=== PATIENT | female | born 1970 | race Caucasian/White ===

== ENCOUNTER 2017-05-22 11:44 | Inpatient (IN) | payer MEDICARE, MEDICAID ==
[~2017-05-22] VITALS: Ht 175.3 cm; Wt 112.6 kg
[~2017-05-22 11:44] MED LIST: CARI350T PO; CHLO1CAP PO; CLON0.1T PO; CLON1TAB23 PO; DOCU100T3 PO; DOXE150C PO; DRON10CA PO; DRON5CAP PO; ESOM20CA PO; FENT1PAT7 TD; FENTANYL PATCH; GABA600T PO; HEPA5000 SQ; HYDR1AMP IV; METH10TA PO; MIRT45TA6 PO; MORP30CP12 PO; NICO1PAT4 TD; OMEP10CA2 PO; ONDA4TAB13 SL; ONDA4VIA4 IV; ONDA8TAB9 PO; OXYC20TA2 PO; OXYC5CAP4 PO; PANT40TA5 PO; PANT40VI IV; POLY119P4; PROM12.55 PO; PROM25AM6 IM; PROM25TA10 PO; VENL75CA PO; ZOLP10TA PO
[2017-05-22] MEDS ORDERED: SODIUM CHLORIDE 0.9% 1,000 ML IV ONE (12:18)
[2017-05-22] MEDS ORDERED: HYDROmorphone 1 MG/ML, 1ML ONE ×2 (12:23→13:36)
[2017-05-22] MEDS ORDERED: ONDANSETRON 2MG/ML, 2ML ONE (12:23)
[2017-05-22] MEDS: HYDROmorphone 1 MG/ML, 1ML IVPush PRN ×2 (12:27→13:40)
[2017-05-22] MEDS ORDERED: ONDANSETRON 2MG/ML, 2ML IVPush ONE (12:30)
[2017-05-22] MEDS ORDERED: SODIUM CHLORIDE FLUSH 10ML SYR IVF ONE (12:30)
[2017-05-22 12:40] LABS: HEMATOCRIT 39.7 % (34.6-47.8); HEMOGLOBIN 12.5 g/dL (11.7-16.4); WHITE BLOOD COUNT 6.4 x10^3/uL (3.4-10)
[2017-05-22 12:53] LABS: ASPARTATE AMINO TRANSFERASE 17 U/L (15-37); BLOOD UREA NITROGEN 3 mg/dL (7-18)
[2017-05-22] MEDS ORDERED: PROMETHAZINE 25MG TABLET PO PRN (17:30)
[2017-05-22] MEDS: SODIUM CHLORIDE 0.9% 1,000 ML IV SCH (17:48)
[2017-05-22] MEDS: ONDANSETRON 2MG/ML, 2ML IVPush PRN (17:49)
[2017-05-22] MEDS: DRONABINOL 5 MG CAPSULE PO SCH ×2 (17:51→21:51)
[2017-05-22] MEDS: ENOXAPARIN 40 MG/0.4 ML SQ SCH (17:51)
[2017-05-22] MEDS ORDERED: BISACODYL 10 MG SUPP PR PRN (18:00)
[2017-05-22] MEDS ORDERED: POLYETHYLENE GLYCOL 17 GM PACKET PO PRN (18:00)
[2017-05-22] MEDS ORDERED: ACETAMINOPHEN 325 MG TABLET PO PRN (18:00)
[2017-05-22] MEDS ORDERED: DOCUSATE 100 MG CAPSULE PO PRN (18:00)
[2017-05-22] MEDS ORDERED: PROMETHAZINE 25 MG/ML, 1ML IM PRN (18:00)
[2017-05-22] MEDS ORDERED: OMNIPAQUE 350 MG/ML, 150 ML BOTTLE ONE (18:27)
[2017-05-22] MEDS: KETOROLAC 30 MG/1 ML IVPush PRN (18:37)
[2017-05-22 20:47] VITALS: BP 147/90
[2017-05-22] MEDS ORDERED: FENTANYL 50 MCG PATCH TD SCH (21:00)
[2017-05-22] MEDS: DOXEPIN 100 MG CAPSULE PO SCH (21:00)
[2017-05-22] MEDS ORDERED: FENTANYL REMOVE PATCH NOTE XX SCH (21:00)
[2017-05-22] MEDS: CARISOPRODOL 350 MG TABLET PO SCH (21:50)
[2017-05-22] MEDS: PANTOPROZOLE 40MG TABLET PO SCH (21:50)
[2017-05-22] MEDS: DOXEPIN 10 MG CAPSULE PO SCH (21:50)
[2017-05-22] MEDS: DOXEPIN 25 MG CAPSULE PO SCH (21:52)
[2017-05-22] MEDS: ZOLPIDEM 10MG TABLET PO SCH (21:52)
[2017-05-23] MEDS: SODIUM CHLORIDE 0.9% 1,000 ML IV SCH ×2 (02:58→12:52)
[2017-05-23] MEDS: KETOROLAC 30 MG/1 ML IVPush PRN ×3 (03:03→21:24)
[2017-05-23 03:08] VITALS: BP 117/79
[2017-05-23 05:39] LABS: ASPARTATE AMINO TRANSFERASE 14 U/L (15-37); BLOOD UREA NITROGEN 4 mg/dL (7-18)
[2017-05-23 05:44] LABS: HEMATOCRIT 34.4 % (34.6-47.8); HEMOGLOBIN 10.8 g/dL (11.7-16.4); WHITE BLOOD COUNT 5.7 x10^3/uL (3.4-10)
[2017-05-23] MEDS: DRONABINOL 5 MG CAPSULE PO SCH ×5 (06:13→21:21)
[2017-05-23] MEDS: CARISOPRODOL 350 MG TABLET PO SCH ×4 (06:13→21:21)
[2017-05-23] MEDS: ONDANSETRON 2MG/ML, 2ML IVPush PRN ×2 (06:13→21:24)
[2017-05-23] MEDS: OXYcodone ORAL.CONC 20 MG/ML PO PRN ×2 (06:32→16:54)
[2017-05-23] MEDS: PANTOPROZOLE 40MG TABLET PO SCH ×2 (08:00→16:27)
[2017-05-23 08:16] VITALS: BP 126/86
[2017-05-23] MEDS ORDERED: MIDAZOLAM 1 MG/ML, 2ML ONE (09:06)
[2017-05-23] MEDS ORDERED: ONABOTULINUMTOXINA 100 UNITS IM ONE (09:30)
[2017-05-23] MEDS ORDERED: KETOROLAC 30 MG/1 ML ONE (09:31)
[2017-05-23] MEDS ORDERED: DEXAMETHASONE 4 MG/ML, 1ML ONE (09:31)
[2017-05-23] MEDS ORDERED: ONDANSETRON 2MG/ML, 2ML ONE (09:31)
[2017-05-23] MEDS ORDERED: PROPOFOL 10 MG/ML, 20ML ONE (09:31)
[2017-05-23] MEDS ORDERED: HYDROcodone/APAP 7.5-325MG/15ML UDC PO PRN (10:00)
[2017-05-23] MEDS ORDERED: ONDANSETRON 2MG/ML, 2ML IVPush PRN (10:00)
[2017-05-23] MEDS ORDERED: METOCLOPRAMIDE 5 MG/ML, 2ML IV PRN (10:00)
[2017-05-23] MEDS ORDERED: MIDAZOLAM 1 MG/ML, 2ML IV PRN (10:00)
[2017-05-23] MEDS ORDERED: LABETALOL 5MG/ML, 20ML IV PRN (10:00)
[2017-05-23] MEDS ORDERED: FENTANYL PF 100 MCG/2ML IV PRN (10:00)
[2017-05-23] MEDS ORDERED: ALBUTEROL SULFATE 2.5 MG/3 ML NPPB PRN (10:00)
[2017-05-23] MEDS ORDERED: METOPROLOL 1 MG/ML, 5ML IV PRN (10:00)
[2017-05-23] MEDS ORDERED: OXYcodone 5 MG/5 ML ORAL.SOL UDC PO PRN (10:00)
[2017-05-23] MEDS ORDERED: EPHEDRINE 50 MG/ML, 1ML IVPush PRN (10:00)
[2017-05-23] MEDS ORDERED: MEPERIDINE/PF 25MG/0.5ML IVPush PRN (10:00)
[2017-05-23] MEDS ORDERED: PROMETHAZINE 25 MG/ML, 1ML IV PRN (10:00)
[2017-05-23] MEDS ORDERED: ACETAMINOPHEN 325 MG TABLET PO PRN (10:00)
[2017-05-23] MEDS ORDERED: hydrALAzine 20 MG/ML, 1ML IV PRN (10:00)
[2017-05-23] MEDS ORDERED: OXYcodone 5 MG/5 ML ORAL.SOL UDC ONE (10:18)
[2017-05-23] MEDS ORDERED: ACETAMINOPHEN 650 MG/20.3 ML UDC ONE (10:18)
[2017-05-23] MEDS ORDERED: HYDROmorphone 1 MG/ML, 1ML ONE (10:23)
[2017-05-23] MEDS: HYDROmorphone 1 MG/ML, 1ML IV PRN ×2 (10:28→10:35)
[2017-05-23] MEDS ORDERED: PROMETHAZINE 25 MG/ML, 1ML ONE (10:38)
[2017-05-23 13:05] LABS: PATH.CAST-FLAG NOT PRESENT; SPERM-FLAG NOT PRESENT; SRC-FLAG NOT PRESENT; XTAL-FLAG NOT PRESENT; YLC-FLAG NOT PRESENT
[2017-05-23] MEDS ORDERED: GADOBUTROL 10 MMOL/10 ML PFS ONE (13:24)
[2017-05-23 15:05] VITALS: BP 120/71
[2017-05-23] MEDS: ENOXAPARIN 40 MG/0.4 ML SQ SCH (18:05)
[2017-05-23 19:35] VITALS: BP 149/106
[2017-05-23] MEDS: DOXEPIN 10 MG CAPSULE PO SCH (21:21)
[2017-05-23] MEDS: ZOLPIDEM 10MG TABLET PO SCH (21:21)
[2017-05-23] MEDS: DOXEPIN 25 MG CAPSULE PO SCH (21:22)
[2017-05-23] MEDS: DOXEPIN 100 MG CAPSULE PO SCH (21:23)
[2017-05-24 00:54] VITALS: BP 99/71
[2017-05-24] MEDS: OXYcodone ORAL.CONC 20 MG/ML PO PRN ×4 (01:02→21:29)
[2017-05-24] MEDS: CARISOPRODOL 350 MG TABLET PO SCH ×2 (05:42→10:52)
[2017-05-24] MEDS: ONDANSETRON 2MG/ML, 2ML IVPush PRN ×2 (05:42→12:36)
[2017-05-24] MEDS: DRONABINOL 5 MG CAPSULE PO SCH ×5 (05:42→20:40)
[2017-05-24 08:39] VITALS: BP 124/70
[2017-05-24] MEDS: PANTOPROZOLE 40MG TABLET PO SCH ×2 (08:41→17:44)
[2017-05-24] MEDS: KETOROLAC 30 MG/1 ML IVPush PRN (12:36)
[2017-05-24 14:33] VITALS: BP 115/78
[2017-05-24] MEDS ORDERED: HYDROmorphone 1 MG/ML, 1ML IV ONE (17:30)
[2017-05-24] MEDS: ENOXAPARIN 40 MG/0.4 ML SQ SCH (17:44)
[2017-05-24 20:11] VITALS: BP 120/82
[2017-05-24] MEDS: ZOLPIDEM 10MG TABLET PO SCH (20:42)
[2017-05-24] MEDS: DOXEPIN 25 MG CAPSULE PO SCH (20:42)
[2017-05-24] MEDS: DOXEPIN 10 MG CAPSULE PO SCH (20:42)
[2017-05-24] MEDS: DOXEPIN 100 MG CAPSULE PO SCH (20:43)
[2017-05-24] MEDS: MUPIROCIN OINT 2%, 22GM TP SCH (20:44)
[2017-05-25 01:32] VITALS: BP 104/64
[2017-05-25] MEDS: OXYcodone ORAL.CONC 20 MG/ML PO PRN ×2 (03:30→09:17)
[2017-05-25] MEDS: DRONABINOL 5 MG CAPSULE PO SCH ×2 (05:28→09:17)
[2017-05-25] MEDS: ONDANSETRON 2MG/ML, 2ML IVPush PRN ×2 (05:29→09:16)
[2017-05-25] MEDS: MUPIROCIN OINT 2%, 22GM TP SCH (05:30)
[2017-05-25 07:30] VITALS: BP 101/70
[2017-05-25] MEDS: PANTOPROZOLE 40MG TABLET PO SCH (09:16)
== END 2017-05-25 15:16 | disposition home or self-care (01) | DRG 392 ==
LOC: ED 13:44 → EDIP 14:45 → 3NE 15:58
PROVIDERS: ADMIT Internal Medicine; ATTEND Internal Medicine
PROC: 0DB68ZX Excision of Stomach, Via Natural or Artificial Opening Endoscopic, Diagnostic (ICD-10-PCS; 2017-05-23)
PROC: 0D748ZZ Dilation of Esophagogastric Junction, Via Natural or Artificial Opening Endoscopic (ICD-10-PCS; 2017-05-23)
PROC: 0DB58ZX Excision of Esophagus, Via Natural or Artificial Opening Endoscopic, Diagnostic (ICD-10-PCS; principal; 2017-05-23 10:00)
DX: K22.0 Achalasia of cardia (principal); E44.0 Moderate protein-calorie malnutrition; E87.1 Hypo-osmolality and hyponatremia; F11.20 Opioid dependence, uncomplicated; E66.01 Morbid (severe) obesity due to excess calories; K50.90 Crohn's disease, unspecified, without complications; K22.8 Other specified diseases of esophagus; K22.2 Esophageal obstruction; Z88.8 Allergy status to other drugs, medicaments and biological substances; Z68.36 Body mass index [BMI] 36.0-36.9, adult; D50.9 Iron deficiency anemia, unspecified; F12.90 Cannabis use, unspecified, uncomplicated; F17.200 Nicotine dependence, unspecified, uncomplicated; F32.9 Major depressive disorder, single episode, unspecified; F41.9 Anxiety disorder, unspecified; G47.00 Insomnia, unspecified; G89.29 Other chronic pain; K21.9 Gastro-esophageal reflux disease without esophagitis; M79.7 Fibromyalgia; R13.19 Other dysphagia; Z86.718 Personal history of other venous thrombosis and embolism
CPT/HCPCS: 36415; 70553; 74220; 80053; 81001; 83690; 83735; 84100; 84443; 85025; 85610; 87086; 88305; 93975; 96361; 96374; 96375; 96376; A9585; J1100; J1170; J1650; J1885; J2250; J2405; J2550; J2704; Q0167; Q9967; C1725; J7030

== ENCOUNTER → 2017-06-14 | Outpatient (CLI) | payer MEDICARE, MEDICAID ==
[~2017-06-14] MED LIST changes: +FENTANYL PF 100 MCG/2ML ONE; +FLUMAZENIL 0.1 MG/1 ML, 5ML ONE; +MIDAZOLAM 1 MG/ML, 5ML ONE; +NALOXONE 1 MG/ML, 2ML ONE; +NICO1PAT13 TD; -NICO1PAT4 TD; +OXYC5CAP2 PO; -OXYC5CAP4 PO
== END | disposition home or self-care (01) ==
LOC: RAD 07:14
PROVIDERS: ATTEND Registered Nurse
DX: M50.323 Other cervical disc degeneration at C6-C7 level (principal); M50.223 Other cervical disc displacement at C6-C7 level; M48.02 Spinal stenosis, cervical region; M25.78 Osteophyte, vertebrae; M54.16 Radiculopathy, lumbar region; M40.50 Lordosis, unspecified, site unspecified; G93.5 Compression of brain
CPT/HCPCS: 72141; 72146; 99156; 99157; J2250; J3010; J2310

== ENCOUNTER → 2017-06-24 | Outpatient (CLI) | payer MEDICARE, MEDICAID | END | disposition home or self-care (01) | LOC: RAD 13:52 | PROVIDERS: ATTEND Registered Nurse | DX: M41.86 Other forms of scoliosis, lumbar region (principal); M43.16 Spondylolisthesis, lumbar region; M51.36 Other intervertebral disc degeneration, lumbar region; G89.29 Other chronic pain | CPT/HCPCS: 72050; 72110; J2250; J3010; J2310 ==

== ENCOUNTER → 2017-06-25 | Outpatient (CLI) | payer MEDICARE, MEDICAID ==
[~2017-06-25] MED LIST changes: -FENTANYL PF 100 MCG/2ML ONE; -FLUMAZENIL 0.1 MG/1 ML, 5ML ONE; -MIDAZOLAM 1 MG/ML, 5ML ONE; -NALOXONE 1 MG/ML, 2ML ONE
== END | disposition home or self-care (01) ==
LOC: RAD 13:02
PROVIDERS: ATTEND Registered Nurse
DX: M54.16 Radiculopathy, lumbar region (principal); M54.12 Radiculopathy, cervical region; M51.27 Other intervertebral disc displacement, lumbosacral region; G93.5 Compression of brain; M48.06 Spinal stenosis, lumbar region
CPT/HCPCS: 70551; 72148

== ENCOUNTER 2020-12-01 13:38 | Emergency (ER) | payer MEDICARE, MEDICAID ==
[~2020-12-01] VITALS: Ht 175.3 cm; Wt 115.0 kg
[~2020-12-01 13:38] MED LIST changes: -CLON0.1T PO; +CLON0.1T22 PO; -HEPA5000 SQ; +HEPA50002 SQ; +MIRT45TA57 PO; -MIRT45TA6 PO; +NICO-486 TD; -NICO1PAT13 TD; -ONDA4VIA4 IV; +ONDA4VIA60 IV; -PANT40TA5 PO; +PANT40TA6 PO; -PROM12.55 PO; +PROM12.57 PO
[2020-12-01 13:40] VITALS: BP 164/77
[2020-12-01] MEDS ORDERED: HYDROmorphone 2 MG/ML, 1ML IVPush PRN (14:00)
[2020-12-01] MEDS ORDERED: LIDOCAINE 2%,20 ML JEL.PF.APP MM ONE ×2 (14:30→14:31)
[2020-12-01] MEDS ORDERED: PROMETHAZINE 25 MG/ML, 1ML IM ONE (14:30)
[2020-12-01] MEDS ORDERED: HYDROmorphone 1 MG/ML, 1ML INJ ONE ×2 (14:31→14:34)
[2020-12-01] MEDS ORDERED: PROMETHAZINE 25 MG/ML, 1ML ONE (14:31)
--- NOTE | 2020-12-01 14:46 | NUR ---
PT RESTING IN BED AND ON MONITOR WITH PT VSS. PT MEDICATED PER DEC. BED SIDE TABLE SET UP FOR PROVIDER WITH REQUESTED SUPPLIES FOR FEEDING TUBE CHANGE.
[2020-12-01] MEDS ORDERED: HYDROmorphone 1 MG/ML, 1ML INJ IM ONE (15:00)
[2020-12-01] MEDS ORDERED: OMNIPAQUE 350 MG/ML, 50 ML BOTTLE ONE (15:29)
== END 2020-12-01 16:59 | disposition home or self-care (01) ==
LOC: ED 13:56
DX: K94.23 Gastrostomy malfunction (principal); F17.200 Nicotine dependence, unspecified, uncomplicated
CPT/HCPCS: 43762; 74018; 96372; 99284; J1170; J2550; Q9967

== ENCOUNTER 2020-12-13 13:54 | Emergency (ER) | payer MEDICARE, MEDICAID ==
[~2020-12-13] VITALS: Ht 175.3 cm; Wt 114.0 kg
--- NOTE | 2020-12-13 15:04 | NUR ---
[employer]: PT TO ROOM FROM LOBBY.
--- NOTE | 2020-12-13 15:15 | NUR ---
CC OF LUQ ABD PAIN FROM G TUBE THAT IS INFECTED. PT STATES SHE HAS BEEN ON ANTIBIOTICS FOR 2 WEEKS. HER GI DOC HAS CHANGED THE ANTIBIOTICS AND PT REPORTS NO CHANGE IN RELIEF AND WAS ADVISED TO COME HERE FOR IV ANTIOBIOTICS. PT STATES TODAY AT HOME SHE HAD SOME BLEEDING FROM G TUBE SITE AND IT BECAME DISLODGED AND FELL OUT ALONG WITH GREEN PUS AND BLOOD WHICH MADE PT NAUSEOUS. PT REPLACED G TUBE HERSELF AND THEN PRESENTED TO ER.
[2020-12-13 15:58] LABS: BASOPHILS % (AUTO) 0 % (0-1); EOSINOPHILS % (AUTO) 5 % (1-7); LYMPHOCYTES % (AUTO) 43 % (22-44); MEAN CORPUSCULAR HEMOGLOBIN 25.5 pg (27.0-34.8); MEAN CORPUSCULAR HGB CONC 33.3 g/dL (32.4-35.8); MEAN PLATELET VOLUME 7.5 fL (7.4-10.4); MONOCYTES % (AUTO) 8 % (2-9); NEUTROPHILS % (AUTO) 44 % (42-75); PLATELET COUNT 295 x10^3/uL (130-400); RED BLOOD COUNT 4.85 x10^6/uL (3.82-5.3); RED CELL DISTRIBUTION WIDTH 16.5 % (9.6-15.2)
[2020-12-13 15:59] LABS: MD NO
[2020-12-13] MEDS ORDERED: HYDROmorphone 1 MG/ML, 1ML INJ IV ONE ×3 (16:00→21:00)
[2020-12-13] MEDS ORDERED: ONDANSETRON 2MG/ML, 2ML IVPush ONE ×3 (16:00→21:00)
[2020-12-13] MEDS ORDERED: SODIUM CHLORIDE FLUSH 10ML SYR IVF ONE (16:00)
[2020-12-13 16:10] LABS: ALANINE AMINOTRANSFERASE 96 U/L (12-78); ALBUMIN 3.1 g/dL (3.4-5.0); ANION GAP 7 mmol/L (5-15); CALCIUM 8.5 mg/dL (8.5-10.1); CHLORIDE 106 mmol/L (98-107); CREATININE 0.71 mg/dL (0.55-1.02)
[2020-12-13 16:12] LABS: ALKALINE PHOSPHATASE 213 U/L (45-117); BILIRUBIN,TOTAL 0.5 mg/dL (0.2-1.0); TOTAL PROTEIN 6.9 g/dL (6.4-8.2)
[2020-12-13] MEDS ORDERED: ONDANSETRON 2MG/ML, 2ML ONE ×3 (16:35→20:40)
[2020-12-13] MEDS ORDERED: HYDROmorphone 1 MG/ML, 1ML INJ ONE ×3 (16:35→20:40)
--- NOTE | 2020-12-13 16:39 | NUR ---
pt to ct
[2020-12-13 16:45] LABS: MICROSCOPIC NOT IND
[2020-12-13] MEDS ORDERED: OMNIPAQUE 350 MG/ML, 100ML BOTTLE ONE (16:54)
--- NOTE | 2020-12-13 18:30 | NUR ---
PT ATTEMPTED TO REPLACE G-TUBE WITH NO SUCCESS. RN ATTEMPTED AND UNABLE TO FIND TRACK. PT REPORTING LOTS OF PAIN. AWARE
[2020-12-13] MEDS ORDERED: LIDOCAINE 1%, 10ML ONE (20:10)
[2020-12-13] MEDS ORDERED: VISIPAQUE 270 MG/ML, 50ML BOTTLE ONE (20:25)
[2020-12-13 20:52] VITALS: BP 101/68
== END 2020-12-13 20:54 | disposition home or self-care (01) ==
LOC: ED 15:40
DX: K94.22 Gastrostomy infection (principal); L03.311 Cellulitis of abdominal wall; R10.33 Periumbilical pain; R11.2 Nausea with vomiting, unspecified; R00.0 Tachycardia, unspecified
CPT/HCPCS: 36415; 49450; 74177; 75984; 80053; 81003; 83690; 85025; 87070; 87075; 87106; 87205; 93005; 96374; 96375; 96376; 99285; C1729; C1769; J1170; J2405; J3490; Q9966; Q9967

== ENCOUNTER 2020-12-18 11:40 | Emergency (ER) | payer MEDICAID, MEDICARE ==
[~2020-12-18] VITALS: Ht 172.7 cm; Wt 115.9 kg
[2020-12-18 11:50] VITALS: BP 191/109
[2020-12-18] MEDS ORDERED: LORazepam 2 MG/ML, 1ML ONE (12:12)
--- NOTE | 2020-12-18 12:20 | NUR ---
PT AMBULATORY TO ROOM FROM LOBBY. PT CHANGED INTO GOWN, MONITORS IN PLACE. CALL LIGHT WITHIN REACH. NO NEEDS AT THIS TIME.
[2020-12-18] MEDS ORDERED: LORazepam 2 MG/ML, 1ML IVPush ONE (12:30)
[2020-12-18] MEDS ORDERED: SODIUM CHLORIDE FLUSH 10ML SYR IVF ONE (12:30)
--- NOTE | 2020-12-18 13:04 | NUR ---
PT TO IR
[2020-12-18] MEDS ORDERED: HYDROmorphone 1 MG/ML, 1ML INJ ONE ×2 (13:21→14:23)
[2020-12-18] MEDS ORDERED: LIDOCAINE 1%, 10ML ONE (13:22)
--- NOTE | 2020-12-18 13:29 | NUR ---
IR CALLED TO HELP MEDICATE PATIENT. METER CALIBRATOR TO IR TO MEDICATE FOR PAIN AT 05/13
[2020-12-18] MEDS ORDERED: HYDROmorphone 1 MG/ML, 1ML INJ IV ONE ×2 (13:30→14:00)
[2020-12-18] MEDS ORDERED: FENTANYL PF 100 MCG/2ML ONE ×2 (13:39)
[2020-12-18] MEDS ORDERED: FLUMAZENIL 0.1 MG/1 ML, 5ML ONE (13:39)
[2020-12-18] MEDS ORDERED: NALOXONE 1 MG/ML, 2ML ONE (13:39)
[2020-12-18] MEDS ORDERED: MIDAZOLAM 1 MG/ML, 5ML ONE (13:39)
--- NOTE | 2020-12-18 14:11 | NUR ---
REPORT FROM IR. PT WAS SEDATED PER IR WITH VERSED & FENTANYL. PT G-TUBE REPLACED. ON HER WAY BACK TO ED.
--- NOTE | 2020-12-18 14:26 | NUR ---
PT CALMLY LAYING ON GURNEY. VSS. PT MEDICATED PER EMAR. CALL LIGHT WITHIN REACH. NO NEEDS AT THIS TIME.
--- NOTE | 2020-12-18 14:47 | NUR ---
Patient given discharge instructions and they have confirmed that they understand the instructions. Patient ambulatory with steady gait to discharge desk. waiting to pick her up.
== END 2020-12-18 14:49 | disposition home or self-care (01) ==
LOC: ED 14:00
DX: R10.9 Unspecified abdominal pain (principal); Z43.1 Encounter for attention to gastrostomy
CPT/HCPCS: 49450; 75984; 96374; 96375; 96376; 99156; 99157; 99285; C1725; C1729; C1769; J1170; J2060; J2250; J3010; J3490; J2310

== ENCOUNTER 2020-12-21 10:32 | Emergency (ER) | payer MEDICARE ==
[~2020-12-21] VITALS: Ht 175.3 cm; Wt 115.0 kg
--- NOTE | 2020-12-21 10:35 | NUR ---
triage: patient came and had her feeding tube replaced in IR. On Wednesday she put food/meds in it and she began throwing up. Still throwing up today, and abdominal pain. 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
--- NOTE | 2020-12-21 10:45 | NUR ---
PT STATES COMING INTO ER ON WEDNESDAY BECAUSE PTS FEEDING TUBE CAME OUT. PT REPORTS INTERVENTION RADIOLOGY REINSERTED FEEDING TUBE. SINCE REINSERTION PT STATES LOTS OF DIARRHEA AND VOMITING SINCE THEN. PT REPORTED TO BEING ON ANTIBIOTICS FOR THROAT AND FEEDING TUBE INFECTION. CO OF SPASMS AND XCRAMPING PAIN IN ABDOMEN AND SPASMS IN ESOPHAGUS. CO OF BACK PAIN WELL.
[2020-12-21] MEDS ORDERED: SODIUM CHLORIDE 0.9% 1,000ML IVBOLUS ONE (11:00)
[2020-12-21] MEDS ORDERED: HYDROmorphone 1 MG/ML, 1ML INJ IV ONE ×2 (11:00→14:30)
[2020-12-21] MEDS ORDERED: ONDANSETRON 2MG/ML, 2ML IVPush ONE (11:00)
[2020-12-21] MEDS ORDERED: HYDROmorphone 1 MG/ML, 1ML INJ ONE ×2 (11:38→14:26)
[2020-12-21] MEDS ORDERED: ONDANSETRON 2MG/ML, 2ML ONE (11:38)
[2020-12-21 11:42] LABS: BASOPHILS % (AUTO) 0 % (0-1); EOSINOPHILS % (AUTO) 4 % (1-7); LYMPHOCYTES % (AUTO) 35 % (22-44); MEAN CORPUSCULAR HEMOGLOBIN 25.3 pg (27.0-34.8); MEAN CORPUSCULAR HGB CONC 32.8 g/dL (32.4-35.8); MEAN PLATELET VOLUME 7.5 fL (7.4-10.4); MONOCYTES % (AUTO) 7 % (2-9); NEUTROPHILS % (AUTO) 54 % (42-75); PLATELET COUNT 324 x10^3/uL (130-400); RED BLOOD COUNT 5.42 x10^6/uL (3.82-5.3); RED CELL DISTRIBUTION WIDTH 16.1 % (9.6-15.2)
[2020-12-21 11:43] LABS: MD NO
--- NOTE | 2020-12-21 12:01 | NUR ---
DELAY IN CARE DUE TO DIFFICULT ACCESS
--- NOTE | 2020-12-21 12:15 | NUR ---
PT IS BACK FROM IMAGING.
--- NOTE | 2020-12-21 12:23 | NUR ---
PATIENT REQUESTING PAIN MEDICATIONS. MADE AWARE.
[2020-12-21 12:26] LABS: ALANINE AMINOTRANSFERASE 37 U/L (12-78); ALBUMIN 3.5 g/dL (3.4-5.0); ANION GAP 6 mmol/L (5-15); CALCIUM 9.2 mg/dL (8.5-10.1); CHLORIDE 106 mmol/L (98-107); CREATININE 0.86 mg/dL (0.55-1.02)
[2020-12-21 12:29] LABS: ALKALINE PHOSPHATASE 192 U/L (45-117); BILIRUBIN,TOTAL 0.2 mg/dL (0.2-1.0); TOTAL PROTEIN 8.2 g/dL (6.4-8.2)
--- NOTE | 2020-12-21 13:33 | NUR ---
report from Yemi. patient in pain. will let know
[2020-12-21 14:43] VITALS: BP 132/78
--- NOTE | 2020-12-21 15:04 | NUR ---
PATIENT UPSET AND TEARFUL NOT WANTING TO LEAVE. SHE STATES SHE WANTS TO STAY BECAUSE SHE FEELS SHE STILL HAS NAUSEA. NO VOMITING SEEN HERE AND NO WRECHING, VSS. PATIENT GOOD ON FEET, AMBULATORY AND NO ISSUES GETTING DRESSED. LISTENED. AIDET.
--- NOTE | 2020-12-21 15:05 | NUR ---
INSTRUCTED TO NOT DRIVE, SIG OTHER PICKING HER UP
== END 2020-12-21 15:05 | disposition home or self-care (01) ==
LOC: ED 11:01
DX: R10.84 Generalized abdominal pain (principal); R11.2 Nausea with vomiting, unspecified; F17.210 Nicotine dependence, cigarettes, uncomplicated; R00.0 Tachycardia, unspecified; K50.90 Crohn's disease, unspecified, without complications
CPT/HCPCS: 36415; 74021; 80053; 83690; 85025; 96361; 96374; 96375; 96376; 99285; J1170; J2405; J7030

== ENCOUNTER 2021-05-30 11:29 | Day surgery (SDC) | payer MEDICARE, MEDICAID ==
[~2021-05-30] VITALS: Ht 175.3 cm; Wt 123.3 kg
[2021-05-30] MEDS ORDERED: SECRETIN 16 MCG ONE ×2 (12:00→14:30)
[2021-05-30] MEDS ORDERED: CHLORHEXIDINE 15 ML UDC ONE (12:06)
[2021-05-30 12:25] VITALS: BP 131/91
[2021-05-30] MEDS ORDERED: atorvastatin PO (12:41)
[2021-05-30] MEDS ORDERED: [UNRECOGNIZED DRUG - OTHER] PO (12:41)
[2021-05-30] MEDS ORDERED: LORA2TAB99 PO (12:41)
[2021-05-30] MEDS ORDERED: metoprolol PO (12:41)
[2021-05-30] MEDS ORDERED: omeprazole PO (12:41)
[2021-05-30] MEDS ORDERED: ONDA4TAB7 PO (12:41)
[2021-05-30] MEDS ORDERED: PRAZ1CAP2 PO (12:42)
[2021-05-30 12:52] LABS: BASOPHILS % (AUTO) 0 % (0-1); EOSINOPHILS % (AUTO) 7 % (1-7); LYMPHOCYTES % (AUTO) 29 % (22-44); MEAN CORPUSCULAR HEMOGLOBIN 23.9 pg (27.0-34.8); MEAN CORPUSCULAR HGB CONC 33.3 g/dL (32.4-35.8); MEAN PLATELET VOLUME 7.7 fL (7.4-10.4); MONOCYTES % (AUTO) 6 % (2-9); NEUTROPHILS % (AUTO) 58 % (42-75); PLATELET COUNT 321 x10^3/uL (130-400); RED BLOOD COUNT 5.69 x10^6/uL (3.82-5.3); RED CELL DISTRIBUTION WIDTH 18.8 % (9.6-15.2)
[2021-05-30] MEDS ORDERED: FENTANYL PF 100 MCG/2ML ONE (12:58)
[2021-05-30] MEDS ORDERED: CHLORHEXIDINE 15 ML UDC PO ONE (13:00)
[2021-05-30] MEDS ORDERED: LACTATED RINGERS 1,000 ML IV SCH (13:00)
[2021-05-30] MEDS ORDERED: SODIUM CHLORIDE 0.9% 1,000 ML IV SCH (13:00)
[2021-05-30] MEDS ORDERED: MIDAZOLAM 1 MG/ML, 2ML ONE (13:01)
[2021-05-30] MEDS ORDERED: PROPOFOL 10 MG/ML, 20ML ONE (13:04)
[2021-05-30] MEDS ORDERED: ONDANSETRON 2MG/ML, 2ML ONE ×3 (13:04→16:19)
[2021-05-30] MEDS ORDERED: ROCURONIUM 10MG/ML,5ML ONE (13:04)
[2021-05-30] MEDS ORDERED: SUCCINYLCHOLINE 20 MG/ML, 10ML ONE (13:09)
[2021-05-30] MEDS ORDERED: HYDROmorphone 1 MG/ML, 1ML INJ IVPush PRN (16:00)
[2021-05-30] MEDS ORDERED: PROMETHAZINE 25 MG/ML, 1ML IVPush PRN (16:00)
[2021-05-30] MEDS ORDERED: DIAZEPAM 5 MG/ML, 2ML IVPush PRN (16:00)
[2021-05-30] MEDS ORDERED: LABETALOL 5MG/ML, 20ML IV PRN (16:00)
[2021-05-30] MEDS ORDERED: EPHEDRINE 50 MG/ML, 1ML IVPush PRN (16:00)
[2021-05-30] MEDS ORDERED: DIPHENHYDRAMINE 50 MG/ML, 1ML IVPush PRN (16:00)
[2021-05-30] MEDS ORDERED: OXYcodone 5 MG/5 ML ORAL.SOL UDC PO PRN (16:00)
[2021-05-30] MEDS ORDERED: EPHEDRINE 50 MG/ML, 1ML IM PRN (16:00)
[2021-05-30] MEDS ORDERED: HYDROmorphone 2 MG/ML, 1ML ONE (16:19)
[2021-05-30] MEDS: ONDANSETRON 2MG/ML, 2ML IVPush PRN ×2 (16:21→16:22)
[2021-06-04] MEDS ORDERED: CHLORHEXIDINE 15 ML UDC ONE (14:23)
[2021-06-04] MEDS ORDERED: OMNIPAQUE 350 MG/ML, 50 ML BOTTLE ONE (14:52)
[2021-06-04] MEDS ORDERED: PROPOFOL 50 ML ONE ×2 (14:53→15:37)
[2021-06-04] MEDS ORDERED: FENTANYL PF 100 MCG/2ML ONE (14:53)
[2021-06-04] MEDS ORDERED: ROCURONIUM 10MG/ML,5ML ONE (15:36)
[2021-06-04] MEDS ORDERED: ONDANSETRON 2MG/ML, 2ML ONE ×2 (15:36→15:41)
[2021-06-04] MEDS ORDERED: SUCCINYLCHOLINE 20 MG/ML, 10ML ONE (15:36)
== END 2021-05-30 17:35 | disposition home or self-care (01) ==
LOC: OUT 11:29 → EDSTATUS 12:45 → OUT 17:35
PROVIDERS: ATTEND Internal Medicine Gastroenterology
DX: K83.8 Other specified diseases of biliary tract (principal); R51.9 Headache, unspecified; K86.2 Cyst of pancreas; R16.1 Splenomegaly, not elsewhere classified; I10 Essential (primary) hypertension; E78.5 Hyperlipidemia, unspecified; G47.33 Obstructive sleep apnea (adult) (pediatric); J43.8 Other emphysema; K21.9 Gastro-esophageal reflux disease without esophagitis; M79.7 Fibromyalgia; M19.90 Unspecified osteoarthritis, unspecified site; Z88.1 Allergy status to other antibiotic agents; Z88.8 Allergy status to other drugs, medicaments and biological substances; Z91.048 Other nonmedicinal substance allergy status; Z20.822 Contact with and (suspected) exposure to COVID-19; Z88.5 Allergy status to narcotic agent; Z79.899 Other long term (current) drug therapy; Z90.710 Acquired absence of both cervix and uterus; Z98.890 Other specified postprocedural states
CPT/HCPCS: 36415; 70551; 74181; 85025; 87635; J0330; J1170; J2250; J2405; J2704; J2850; J3010; J7120

== ENCOUNTER 2021-06-01 14:49 | Inpatient (IN) | payer MEDICARE, MEDICAID ==
[~2021-06-01] VITALS: Ht 175.3 cm; Wt 128.1 kg
[~2021-06-01 14:49] MED LIST changes: +LORA2TAB99 PO; +ONDA4TAB7 PO; +PRAZ1CAP2 PO; +[UNRECOGNIZED DRUG - OTHER] PO; +atorvastatin PO; +metoprolol PO; +omeprazole PO
[2021-06-01 15:54] LABS: BASOPHILS % (AUTO) 1 % (0-1); EOSINOPHILS % (AUTO) 6 % (1-7); LYMPHOCYTES % (AUTO) 28 % (22-44); MEAN CORPUSCULAR HEMOGLOBIN 23.2 pg (27.0-34.8); MEAN CORPUSCULAR HGB CONC 32.3 g/dL (32.4-35.8); MEAN PLATELET VOLUME 7.5 fL (7.4-10.4); MONOCYTES % (AUTO) 6 % (2-9); NEUTROPHILS % (AUTO) 58 % (42-75); PLATELET COUNT 304 x10^3/uL (130-400); RED BLOOD COUNT 5.31 x10^6/uL (3.82-5.3); RED CELL DISTRIBUTION WIDTH 18.2 % (9.6-15.2)
[2021-06-01 16:13] LABS: ALANINE AMINOTRANSFERASE 355 U/L (12-78); ANION GAP 5 mmol/L (5-15); CALCIUM 9.2 mg/dL (8.5-10.1); CHLORIDE 103 mmol/L (98-107); CREATININE 0.83 mg/dL (0.55-1.02)
[2021-06-01 16:16] LABS: ALKALINE PHOSPHATASE 296 U/L (45-117); BILIRUBIN,TOTAL 0.2 mg/dL (0.2-1.0); TOTAL PROTEIN 7.7 g/dL (6.4-8.2)
--- NOTE | 2021-06-01 17:46 | NUR ---
PATIENT WALKED BACK FROM [facility] WITH CHIEF C/O CYST ON PANCREAS. PER PATIENT SHE HAD MRI DONE YESTERDAY AND WAS TOLD SHE HAS CYST ON HER PANCREAS THAT NEEDS TO BE REMOVED. PATIENT C/O 8/10 LEFT UPPER QUADRANT PAIN AND REPORTS N/V/D. A&O X4, CONNECTED TO MONITOR, VSS, CALL LIGHT WITHIN REACH.
--- NOTE | 2021-06-01 18:17 | NUR ---
ERMD AT BEDSIDE FOR EVALUATION.
[2021-06-01] MEDS ORDERED: ONDANSETRON 2MG/ML, 2ML ONE (18:26)
[2021-06-01] MEDS ORDERED: HYDROmorphone 2 MG/ML, 1ML ONE ×3 (18:26→22:13)
[2021-06-01] MEDS ORDERED: ONDANSETRON 2MG/ML, 2ML IVPush ONE (18:30)
[2021-06-01] MEDS ORDERED: HYDROmorphone 1 MG/ML, 1ML INJ IV ONE ×2 (18:30→20:00)
[2021-06-01] MEDS ORDERED: SODIUM CHLORIDE 0.9% 1,000 ML IV ONE (18:30)
[2021-06-01] MEDS ORDERED: SODIUM CHLORIDE FLUSH 10ML SYR IVF ONE (18:30)
--- NOTE | 2021-06-01 18:52 | NUR ---
REPORT TO JARED [employer]OPLES FOR TRANSFER OF PATIENT CARE.
[2021-06-01 18:54] LABS: MICROSCOPIC INDICATED
--- NOTE | 2021-06-01 19:09 | NUR ---
22G IV L Wrist established. Meds given, IVF running. Call santacruz and personal items within reach.
[2021-06-01] MEDS ORDERED: CEFTRIAXONE 1,000 MG in DEXTROSE 5% 50 ML IVPB ONE (20:30)
[2021-06-01] MEDS ORDERED: ONDANSETRON 4 MG TABLET PO PRN (21:00)
[2021-06-01] MEDS ORDERED: OMEPRAZOLE 20 MG CAPSULE.DR PO SCH (21:00)
[2021-06-01] MEDS ORDERED: BISACODYL 10 MG SUPP PR PRN (21:00)
[2021-06-01] MEDS ORDERED: POLYETHYLENE GLYCOL 17 GM PACKET PO PRN (21:00)
[2021-06-01] MEDS: [UNRECOGNIZED DRUG - OTHER] HOMEMEDPO SCH (21:00)
[2021-06-01] MEDS: SODIUM CHLORIDE FLUSH 10ML SYR IVF SCH (21:20)
--- NOTE | 2021-06-01 21:20 | NUR ---
Pt placed on 2L via NC for dropping O2 sats. Pt states she has a hx of sleep apnea and uses CPAP at home. States pain is 7/10 currently.
--- NOTE | 2021-06-01 22:10 | NUR ---
Report to JARED Cifuentes
[2021-06-01] MEDS ORDERED: PROMETHAZINE 25MG TABLET ONE (22:13)
[2021-06-01] MEDS: PROMETHAZINE 25MG TABLET PO PRN (22:18)
[2021-06-01] MEDS: HYDROmorphone 2 MG/ML, 1ML IVPush PRN (22:18)
--- NOTE | 2021-06-01 22:24 | NUR ---
Pt given PRN ordered 1.5mg Dilaudid IV and 25mg Phenergan PO for nausea and pain. Pt awaiting transport to room
--- NOTE | 2021-06-01 22:53 | NUR ---
Pt ambulated to bathroom w/ steady gait. Pt being transported to IP bed assignment at this time.
[2021-06-01 23:04] VITALS: BP 127/95
[2021-06-01] MEDS: PRAZOSIN 1 MG CAPSULE PO SCH (23:56)
[2021-06-01] MEDS: DOCUSATE 100 MG CAPSULE PO SCH (23:57)
[2021-06-01] MEDS: DRONABINOL 5 MG CAPSULE PO SCH (23:57)
[2021-06-01] MEDS: DOXEPIN 25 MG CAPSULE PO SCH (23:57)
[2021-06-02] MEDS: OMEPRAZOLE 20 MG CAPSULE.DR PO SCH ×3 (00:27→21:13)
[2021-06-02] MEDS: ZOLPIDEM 10MG TABLET PO PRN ×3 (01:30→22:15)
[2021-06-02] MEDS: HYDROmorphone 2 MG/ML, 1ML IVPush PRN ×5 (02:29→19:55)
[2021-06-02] MEDS: ONDANSETRON 2MG/ML, 2ML IVPush PRN ×4 (02:49→22:15)
[2021-06-02 02:55] VITALS: BP 124/91
[2021-06-02] MEDS: DRONABINOL 5 MG CAPSULE PO SCH ×5 (05:15→23:05)
[2021-06-02 06:49] LABS: BASOPHILS % (AUTO) 1 % (0-1); EOSINOPHILS % (AUTO) 9 % (1-7); LYMPHOCYTES % (AUTO) 33 % (22-44); MEAN CORPUSCULAR HEMOGLOBIN 22.9 pg (27.0-34.8); MEAN CORPUSCULAR HGB CONC 31.2 g/dL (32.4-35.8); MEAN PLATELET VOLUME 7.6 fL (7.4-10.4); MONOCYTES % (AUTO) 7 % (2-9); NEUTROPHILS % (AUTO) 49 % (42-75); PLATELET COUNT 212 x10^3/uL (130-400); RED BLOOD COUNT 4.72 x10^6/uL (3.82-5.3); RED CELL DISTRIBUTION WIDTH 18.9 % (9.6-15.2)
[2021-06-02 06:58] LABS: ALBUMIN 2.3 g/dL (3.4-5.0); ANION GAP 6 mmol/L (5-15); CALCIUM 8.4 mg/dL (8.5-10.1); CHLORIDE 106 mmol/L (98-107)
[2021-06-02 07:02] LABS: ALANINE AMINOTRANSFERASE 239 U/L (12-78); ALKALINE PHOSPHATASE 233 U/L (45-117); BILIRUBIN,TOTAL 0.4 mg/dL (0.2-1.0); CREATININE 0.58 mg/dL (0.55-1.02); TOTAL PROTEIN 6.3 g/dL (6.4-8.2)
[2021-06-02 08:42] VITALS: BP 100/70
[2021-06-02] MEDS: SODIUM CHLORIDE FLUSH 10ML SYR IVF SCH ×2 (09:00→21:14)
[2021-06-02] MEDS ORDERED: OMEPRAZOLE 20 MG CAPSULE.DR PO SCH (09:00)
[2021-06-02] MEDS: DOCUSATE 100 MG CAPSULE PO SCH ×2 (09:05→21:13)
[2021-06-02] MEDS: METOPROLOL SUCCINATE 25 MG TAB.ER.24H PO SCH (09:05)
[2021-06-02] MEDS: CEFTRIAXONE 1,000 MG in DEXTROSE 5% 50 ML IVPB SCH (09:06)
[2021-06-02] MEDS ORDERED: CARI350T PO (09:18)
[2021-06-02 14:32] VITALS: BP 103/73
[2021-06-02] MEDS: IRON SUCROSE COMPLEX 100MG/5ML IV SCH (15:17)
[2021-06-02] MEDS: CARISOPRODOL 350 MG TABLET PO SCH ×2 (17:00→23:05)
[2021-06-02 18:49] VITALS: BP 110/84
[2021-06-02] MEDS: [UNRECOGNIZED DRUG - OTHER] HOMEMEDPO SCH (19:27)
[2021-06-02] MEDS: PRAZOSIN 1 MG CAPSULE PO SCH (21:13)
[2021-06-02] MEDS: DOXEPIN 25 MG CAPSULE PO SCH (21:13)
[2021-06-03] MEDS: HYDROmorphone 2 MG/ML, 1ML IVPush PRN ×6 (00:07→23:01)
[2021-06-03 01:23] VITALS: BP 111/74
[2021-06-03] MEDS: PROMETHAZINE 25MG TABLET PO PRN (02:45)
[2021-06-03] MEDS: ONDANSETRON 2MG/ML, 2ML IVPush PRN ×2 (05:17→16:47)
[2021-06-03] MEDS: DRONABINOL 5 MG CAPSULE PO SCH ×5 (05:17→22:06)
[2021-06-03 06:30] LABS: BASOPHILS % (AUTO) 1 % (0-1); EOSINOPHILS % (AUTO) 8 % (1-7); LYMPHOCYTES % (AUTO) 24 % (22-44); MEAN CORPUSCULAR HEMOGLOBIN 23.1 pg (27.0-34.8); MEAN CORPUSCULAR HGB CONC 31.9 g/dL (32.4-35.8); MEAN PLATELET VOLUME 7.7 fL (7.4-10.4); MONOCYTES % (AUTO) 7 % (2-9); NEUTROPHILS % (AUTO) 60 % (42-75); PLATELET COUNT 230 x10^3/uL (130-400); RED BLOOD COUNT 4.59 x10^6/uL (3.82-5.3); RED CELL DISTRIBUTION WIDTH 18.2 % (9.6-15.2)
[2021-06-03 06:40] LABS: ALANINE AMINOTRANSFERASE 170 U/L (12-78); ALBUMIN 2.5 g/dL (3.4-5.0); ANION GAP 5 mmol/L (5-15); CALCIUM 8.3 mg/dL (8.5-10.1); CHLORIDE 104 mmol/L (98-107); CREATININE 0.58 mg/dL (0.55-1.02)
[2021-06-03 06:42] LABS: ALKALINE PHOSPHATASE 229 U/L (45-117); BILIRUBIN,TOTAL 0.2 mg/dL (0.2-1.0); TOTAL PROTEIN 6.2 g/dL (6.4-8.2)
[2021-06-03] MEDS ORDERED: LORazepam 1MG TABLET ONE (08:50)
[2021-06-03] MEDS: SODIUM CHLORIDE FLUSH 10ML SYR IVF SCH ×2 (09:00→22:06)
[2021-06-03] MEDS: METOPROLOL SUCCINATE 25 MG TAB.ER.24H PO SCH (09:06)
[2021-06-03] MEDS: OMEPRAZOLE 20 MG CAPSULE.DR PO SCH ×2 (09:07→20:17)
[2021-06-03] MEDS: IRON SUCROSE COMPLEX 100MG/5ML IV SCH (09:07)
[2021-06-03] MEDS: DOCUSATE 100 MG CAPSULE PO SCH ×2 (09:07→20:15)
[2021-06-03] MEDS: CARISOPRODOL 350 MG TABLET PO SCH ×3 (09:07→22:06)
[2021-06-03] MEDS: CEFTRIAXONE 1,000 MG in DEXTROSE 5% 50 ML IVPB SCH (09:08)
[2021-06-03 09:10] VITALS: BP 107/74
[2021-06-03 13:30] VITALS: BP 107/74
[2021-06-03 19:30] VITALS: BP 97/66
[2021-06-03] MEDS: DOXEPIN 25 MG CAPSULE PO SCH (20:17)
[2021-06-03] MEDS: [UNRECOGNIZED DRUG - OTHER] HOMEMEDPO SCH (21:00)
[2021-06-03] MEDS: PRAZOSIN 1 MG CAPSULE PO SCH (22:07)
[2021-06-04 00:56] VITALS: BP 100/69
[2021-06-04] MEDS: ONDANSETRON 2MG/ML, 2ML IVPush PRN ×3 (03:08→23:33)
[2021-06-04] MEDS: HYDROmorphone 2 MG/ML, 1ML IVPush PRN ×4 (03:09→20:16)
[2021-06-04] MEDS: DRONABINOL 5 MG CAPSULE PO SCH ×5 (06:15→21:53)
[2021-06-04 06:59] VITALS: BP 116/78
[2021-06-04 07:43] LABS: BASOPHILS % (AUTO) 1 % (0-1); EOSINOPHILS % (AUTO) 7 % (1-7); LYMPHOCYTES % (AUTO) 28 % (22-44); MEAN CORPUSCULAR HEMOGLOBIN 23.2 pg (27.0-34.8); MEAN CORPUSCULAR HGB CONC 31.9 g/dL (32.4-35.8); MEAN PLATELET VOLUME 7.7 fL (7.4-10.4); MONOCYTES % (AUTO) 8 % (2-9); NEUTROPHILS % (AUTO) 56 % (42-75); PLATELET COUNT 257 x10^3/uL (130-400); RED BLOOD COUNT 4.83 x10^6/uL (3.82-5.3); RED CELL DISTRIBUTION WIDTH 18.8 % (9.6-15.2)
[2021-06-04 07:55] LABS: CHLORIDE 101 mmol/L (98-107)
[2021-06-04 08:02] LABS: ALANINE AMINOTRANSFERASE 132 U/L (12-78); ALBUMIN 2.5 g/dL (3.4-5.0); ALKALINE PHOSPHATASE 209 U/L (45-117); ANION GAP 3 mmol/L (5-15); BILIRUBIN,TOTAL 0.2 mg/dL (0.2-1.0); CALCIUM 8.9 mg/dL (8.5-10.1); CREATININE 0.64 mg/dL (0.55-1.02); TOTAL PROTEIN 6.6 g/dL (6.4-8.2)
[2021-06-04] MEDS: SODIUM CHLORIDE FLUSH 10ML SYR IVF SCH ×2 (09:00→20:28)
[2021-06-04] MEDS: CEFTRIAXONE 1,000 MG in DEXTROSE 5% 50 ML IVPB SCH (09:54)
[2021-06-04] MEDS: IRON SUCROSE COMPLEX 100MG/5ML IV SCH (09:54)
[2021-06-04] MEDS: OMEPRAZOLE 20 MG CAPSULE.DR PO SCH ×2 (09:55→21:53)
[2021-06-04] MEDS: METOPROLOL SUCCINATE 25 MG TAB.ER.24H PO SCH (09:57)
[2021-06-04] MEDS: CARISOPRODOL 350 MG TABLET PO SCH ×3 (09:58→21:53)
[2021-06-04] MEDS: DOCUSATE 100 MG CAPSULE PO SCH ×2 (09:59→21:53)
[2021-06-04 12:29] VITALS: BP 104/70
[2021-06-04] MEDS ORDERED: SUCCINYLCHOLINE 20 MG/ML, 10ML ONE (14:52)
[2021-06-04] MEDS ORDERED: ROCURONIUM 10 MG/ML,10ML ONE (14:52)
[2021-06-04] MEDS ORDERED: PROPOFOL 10 MG/ML, 20ML ONE (14:52)
[2021-06-04] MEDS ORDERED: PROPOFOL 10 MG/ML, 50ML ONE (14:52)
[2021-06-04] MEDS ORDERED: PROMETHAZINE 25 MG/ML, 1ML IVPush PRN (15:30)
[2021-06-04] MEDS ORDERED: DIPHENHYDRAMINE 50 MG/ML, 1ML IVPush PRN (15:30)
[2021-06-04] MEDS ORDERED: EPHEDRINE 50 MG/ML, 1ML IVPush PRN (15:30)
[2021-06-04] MEDS ORDERED: ONDANSETRON 2MG/ML, 2ML IVPush PRN (15:30)
[2021-06-04] MEDS ORDERED: MEPERIDINE/PF 25MG/0.5ML IVPush PRN (15:30)
[2021-06-04] MEDS ORDERED: OXYcodone 5 MG/5 ML ORAL.SOL UDC PO PRN (15:30)
[2021-06-04] MEDS ORDERED: DIAZEPAM 5 MG/ML, 2ML IVPush PRN (15:30)
[2021-06-04] MEDS ORDERED: EPHEDRINE 50 MG/ML, 1ML IM PRN (15:30)
[2021-06-04] MEDS ORDERED: LABETALOL 5MG/ML, 20ML IV PRN (15:30)
[2021-06-04] MEDS ORDERED: HYDROmorphone 2 MG/ML, 1ML ONE (16:19)
[2021-06-04] MEDS: HYDROmorphone 1 MG/ML, 1ML INJ IVPush PRN ×2 (16:22→16:35)
[2021-06-04] MEDS ORDERED: OXYcodone 5 MG/5 ML ORAL.SOL UDC ONE (16:37)
[2021-06-04 20:19] VITALS: BP 125/84
[2021-06-04] MEDS: [UNRECOGNIZED DRUG - OTHER] HOMEMEDPO SCH (20:28)
[2021-06-04] MEDS: DOXEPIN 25 MG CAPSULE PO SCH (21:53)
[2021-06-04 21:54] VITALS: BP 118/85
[2021-06-04] MEDS: PRAZOSIN 1 MG CAPSULE PO SCH (21:54)
[2021-06-05 00:09] VITALS: BP 101/63
[2021-06-05] MEDS: HYDROmorphone 2 MG/ML, 1ML IVPush PRN ×4 (00:35→13:45)
[2021-06-05 06:26] LABS: EOSINOPHILS % (AUTO) 2 % (1-7); MEAN CORPUSCULAR HEMOGLOBIN 23.5 pg (27.0-34.8)
[2021-06-05 06:28] LABS: BASOPHILS % (AUTO) 1 % (0-1); LYMPHOCYTES % (AUTO) 25 % (22-44); MEAN CORPUSCULAR HGB CONC 31.9 g/dL (32.4-35.8); MONOCYTES % (AUTO) 6 % (2-9); NEUTROPHILS % (AUTO) 66 % (42-75); PLATELET COUNT 247 x10^3/uL (130-400); RED BLOOD COUNT 4.86 x10^6/uL (3.82-5.3); RED CELL DISTRIBUTION WIDTH 18.9 % (9.6-15.2)
[2021-06-05 06:30] LABS: CALCIUM 9.1 mg/dL (8.5-10.1); CHLORIDE 102 mmol/L (98-107)
[2021-06-05 06:37] LABS: ALANINE AMINOTRANSFERASE 100 U/L (12-78); ALBUMIN 2.6 g/dL (3.4-5.0); ALKALINE PHOSPHATASE 201 U/L (45-117); ANION GAP 6 mmol/L (5-15); BILIRUBIN,TOTAL 0.2 mg/dL (0.2-1.0); CREATININE 0.63 mg/dL (0.55-1.02); TOTAL PROTEIN 6.7 g/dL (6.4-8.2)
[2021-06-05] MEDS: DRONABINOL 5 MG CAPSULE PO SCH ×3 (06:51→13:44)
[2021-06-05 07:00] LABS: ANISOCYTOSIS 1+; OVALOCYTES 1+
[2021-06-05 07:01] VITALS: BP 148/75
[2021-06-05 07:01] LABS: <PLATELET ESTIMATE> ADEQUATE; <PLT MORPHOLOGY> NORMAL PLT MORPH
[2021-06-05] MEDS: DOCUSATE 100 MG CAPSULE PO SCH (09:07)
[2021-06-05] MEDS: OMEPRAZOLE 20 MG CAPSULE.DR PO SCH (09:07)
[2021-06-05] MEDS: CARISOPRODOL 350 MG TABLET PO SCH (09:08)
[2021-06-05] MEDS: SODIUM CHLORIDE FLUSH 10ML SYR IVF SCH (09:09)
[2021-06-05] MEDS: METOPROLOL SUCCINATE 25 MG TAB.ER.24H PO SCH (09:12)
[2021-06-05] MEDS ORDERED: OXYcodone IR 5MG TABLET PO ONE (11:00)
[2021-06-05] MEDS ORDERED: HYDROXYZINE PAMOATE 25MG CAP PO ONE (11:00)
[2021-06-05] MEDS: CEFTRIAXONE 1,000 MG in DEXTROSE 5% 50 ML IVPB SCH (12:37)
[2021-06-05 14:05] VITALS: BP 105/74
== END 2021-06-05 15:43 | disposition home or self-care (01) | DRG 445 ==
LOC: ED 20:00 → 3N 20:50 → ED 21:03
PROVIDERS: ADMIT Family Medicine; ATTEND Family Medicine
PROC: 0DJ08ZZ Inspection of Upper Intestinal Tract, Via Natural or Artificial Opening Endoscopic (ICD-10-PCS; 2021-06-04)
PROC: BD49ZZZ Ultrasonography of Duodenum (ICD-10-PCS; 2021-06-04)
PROC: 0D758ZZ Dilation of Esophagus, Via Natural or Artificial Opening Endoscopic (ICD-10-PCS; principal; 2021-06-04 14:30)
PROC: 0FJB8ZZ Inspection of Hepatobiliary Duct, Via Natural or Artificial Opening Endoscopic (ICD-10-PCS; 2021-06-04 14:30)
DX: K83.4 Spasm of sphincter of Oddi (principal); N39.0 Urinary tract infection, site not specified; Z68.41 Body mass index [BMI] 40.0-44.9, adult; E87.1 Hypo-osmolality and hyponatremia; F11.20 Opioid dependence, uncomplicated; K86.2 Cyst of pancreas; K57.10 Diverticulosis of small intestine without perforation or abscess without bleeding; K58.9 Irritable bowel syndrome, unspecified; K83.8 Other specified diseases of biliary tract; R13.14 Dysphagia, pharyngoesophageal phase; E66.01 Morbid (severe) obesity due to excess calories; B96.1 Klebsiella pneumoniae [K. pneumoniae] as the cause of diseases classified elsewhere; Z20.822 Contact with and (suspected) exposure to COVID-19; D50.9 Iron deficiency anemia, unspecified; E78.5 Hyperlipidemia, unspecified; F12.90 Cannabis use, unspecified, uncomplicated; F17.210 Nicotine dependence, cigarettes, uncomplicated; F32.9 Major depressive disorder, single episode, unspecified; G25.81 Restless legs syndrome; G89.29 Other chronic pain; I10 Essential (primary) hypertension; K22.0 Achalasia of cardia; R74.01 Elevation of levels of liver transaminase levels; E86.0 Dehydration; F41.1 Generalized anxiety disorder; Z79.899 Other long term (current) drug therapy; Z90.49 Acquired absence of other specified parts of digestive tract; Z90.710 Acquired absence of both cervix and uterus; Z99.81 Dependence on supplemental oxygen; Z90.722 Acquired absence of ovaries, bilateral; Z88.1 Allergy status to other antibiotic agents; Z88.5 Allergy status to narcotic agent
CPT/HCPCS: 36415; 70551; 74181; 74328; 80053; 80074; 81001; 82728; 83540; 83550; 83690; 85025; 87077; 87086; 87186; 87635; 96374; 96375; 96376; G0378; J0696; J1170; J1756; J2250; J2405; J2704; J2850; J3010; Q0167; Q0169; Q9967; J0330; J7030; J7120

== ENCOUNTER 2021-06-07 15:23 | Emergency (ER) | payer MEDICARE, MEDICAID ==
[~2021-06-07] VITALS: Ht 175.3 cm; Wt 122.7 kg
[2021-06-07] MEDS ORDERED: DIPHENHYDRAMINE 50 MG/ML, 1ML ONE (15:59)
[2021-06-07] MEDS ORDERED: METOCLOPRAMIDE 5 MG/ML, 2ML ONE (15:59)
[2021-06-07] MEDS ORDERED: HYDROmorphone 2 MG/ML, 1ML ONE (15:59)
[2021-06-07] MEDS ORDERED: SODIUM CHLORIDE FLUSH 10ML SYR IVF ONE (16:00)
[2021-06-07] MEDS ORDERED: METOCLOPRAMIDE 5 MG/ML, 2ML IVPush ONE (16:00)
[2021-06-07] MEDS ORDERED: SODIUM CHLORIDE 0.9% 1,000ML IVBOLUS ONE (16:00)
[2021-06-07] MEDS ORDERED: HYDROmorphone 1 MG/ML, 1ML INJ IV ONE (16:00)
[2021-06-07] MEDS ORDERED: DIPHENHYDRAMINE 50 MG/ML, 1ML IVPush ONE (16:00)
[2021-06-07 17:19] LABS: ALANINE AMINOTRANSFERASE 63 U/L (12-78); ALBUMIN 3.1 g/dL (3.4-5.0); ANION GAP 6 mmol/L (5-15); CALCIUM 8.9 mg/dL (8.5-10.1); CHLORIDE 105 mmol/L (98-107); CREATININE 0.73 mg/dL (0.55-1.02)
[2021-06-07 17:20] LABS: BASOPHILS % (AUTO) 0 % (0-1); EOSINOPHILS % (AUTO) 9 % (1-7); LYMPHOCYTES % (AUTO) 31 % (22-44); MEAN CORPUSCULAR HGB CONC 32.5 g/dL (32.4-35.8); MEAN PLATELET VOLUME 7.9 fL (7.4-10.4); MONOCYTES % (AUTO) 8 % (2-9); NEUTROPHILS % (AUTO) 51 % (42-75); PLATELET COUNT 297 x10^3/uL (130-400); RED BLOOD COUNT 5.43 x10^6/uL (3.82-5.3); RED CELL DISTRIBUTION WIDTH 19.9 % (9.6-15.2)
[2021-06-07 17:22] LABS: ALKALINE PHOSPHATASE 201 U/L (45-117); BILIRUBIN,TOTAL 0.2 mg/dL (0.2-1.0); TOTAL PROTEIN 7.6 g/dL (6.4-8.2)
[2021-06-07] MEDS ORDERED: KETAMINE 10 MG/ML, 20ML ONE (17:38)
[2021-06-07] MEDS ORDERED: KETAMINE 10 MG/ML, 20ML IV ONE (18:00)
[2021-06-07 19:11] VITALS: BP 134/87
--- NOTE | 2021-06-07 19:19 | NUR ---
patient road tested and ambulates without assistance. alert and oriented times 4, VSS, independent
== END 2021-06-07 19:25 | disposition home or self-care (01) ==
LOC: ED 15:57
DX: G89.29 Other chronic pain (principal); R10.84 Generalized abdominal pain
CPT/HCPCS: 36415; 80053; 83690; 85025; 96361; 96374; 96375; 99284; J1170; J1200; J2765; J7030

== ENCOUNTER 2021-06-21 07:03 | Emergency (ER) | payer MEDICARE, MEDICAID ==
[~2021-06-21] VITALS: Ht 175.3 cm; Wt 121.0 kg
--- NOTE | 2021-06-21 08:57 | NUR ---
xRAY ABDOMEN DONE AND RESULTED, NEED URINE SAMPLE STILL AND LABS.
--- NOTE | 2021-06-21 08:57 | NUR ---
inspector printed circuit boards: Pt ambulatory to room from lobby at this time.
[2021-06-21] MEDS ORDERED: SODIUM CHLORIDE 0.9% 1,000ML IVBOLUS ONE (09:00)
[2021-06-21] MEDS ORDERED: FAMOTIDINE 20 MG/2 ML IVPush ONE (09:00)
[2021-06-21] MEDS ORDERED: ONDANSETRON 2MG/ML, 2ML IVPush ONE (09:00)
[2021-06-21 09:04] LABS: BASOPHILS % (AUTO) 1 % (0-1); EOSINOPHILS % (AUTO) 2 % (1-7); LYMPHOCYTES % (AUTO) 27 % (22-44); MEAN CORPUSCULAR HEMOGLOBIN 24.9 pg (27.0-34.8); MEAN CORPUSCULAR HGB CONC 33.2 g/dL (32.4-35.8); MEAN PLATELET VOLUME 7.9 fL (7.4-10.4); MONOCYTES % (AUTO) 6 % (2-9); NEUTROPHILS % (AUTO) 64 % (42-75); PLATELET COUNT 289 x10^3/uL (130-400); RED CELL DISTRIBUTION WIDTH 21.2 % (9.6-15.2)
--- NOTE | 2021-06-21 09:09 | NUR ---
PT UNABLE TO PROVIDE URINE SPECIMEN AT THIS TIME. BP CUFF, PULSE OX IN PLACE. AWAITING LAB RESULTS. BOAT PAINTER TO START IV. CALL LIGHT WITHIN REACH, WARM BLANKET PROVIDED.
[2021-06-21 09:12] LABS: ALBUMIN 3.6 g/dL (3.4-5.0); ANION GAP 8 mmol/L (5-15); CALCIUM 9.5 mg/dL (8.5-10.1); CHLORIDE 109 mmol/L (98-107)
[2021-06-21] MEDS ORDERED: DIPHENHYDRAMINE 50 MG/ML, 1ML ONE (09:14)
[2021-06-21] MEDS ORDERED: ONDANSETRON 2MG/ML, 2ML ONE (09:14)
[2021-06-21] MEDS ORDERED: FAMOTIDINE 20 MG/2 ML ONE (09:15)
[2021-06-21 09:16] LABS: ALANINE AMINOTRANSFERASE 26 U/L (12-78); ALKALINE PHOSPHATASE 151 U/L (45-117); BILIRUBIN,TOTAL 0.2 mg/dL (0.2-1.0); CREATININE 0.87 mg/dL (0.55-1.02); TOTAL PROTEIN 8.2 g/dL (6.4-8.2)
[2021-06-21] MEDS ORDERED: DIPHENHYDRAMINE 50 MG/ML, 1ML IVPush ONE (09:30)
--- NOTE | 2021-06-21 10:00 | NUR ---
US IV PLACED. NS BOLUS AND MEDS GIVEN PER ERP ORDER. PT UPDATED ON POC, STILL NEED UA. CALL LIGHT WITHIN REACH.
--- NOTE | 2021-06-21 10:15 | NUR ---
ERP NOTIFIED OF DELAY FOR IV.
--- NOTE | 2021-06-21 10:21 | NUR ---
ADD ON ORDER FOR CT ABD/PELVIS
[2021-06-21] MEDS ORDERED: HYDROmorphone 2 MG/ML, 1ML ONE (10:51)
[2021-06-21] MEDS ORDERED: HYDROmorphone 1 MG/ML, 1ML INJ IV ONE ×2 (11:00→12:30)
--- NOTE | 2021-06-21 11:05 | NUR ---
PT MEDICATED FOR PAIN RATED 8/10. PT ABLE TO AMBULATE TO AND PROVIDED URINE SPECIMEN. URINE SENT TO LAB. PT TO CT.
[2021-06-21] MEDS ORDERED: OMNIPAQUE 350 MG/ML, 100ML BOTTLE ONE (11:15)
[2021-06-21 11:23] LABS: MICROSCOPIC AUTO
--- NOTE | 2021-06-21 12:14 | NUR ---
ALL RESULTS BACK, PT FOR RECHECK.
[2021-06-21 12:35] VITALS: BP 121/78
== END 2021-06-21 12:38 | disposition home or self-care (01) ==
LOC: ED 07:10
DX: K57.92 Diverticulitis of intestine, part unspecified, without perforation or abscess without bleeding (principal); R10.84 Generalized abdominal pain; R11.2 Nausea with vomiting, unspecified
CPT/HCPCS: 36415; 74021; 74177; 76700; 80053; 81001; 83690; 85025; 87086; 96374; 96375; 96376; 99285; J1170; J1200; J2405; J7030; Q9967

== ENCOUNTER 2021-06-30 07:13 | Observation (INO) | payer MEDICARE, MEDICAID ==
[~2021-06-30] VITALS: Ht 175.3 cm; Wt 115.3 kg
[2021-07-01 12:11] VITALS: BP 126/86
== END 2021-07-01 14:45 | disposition home or self-care (01) ==
LOC: ED 07:24 → INTOOBSV 12:09 → EDIP 12:09 → SUATTDRO 12:42 → 3N 14:00
PROVIDERS: ADMIT Hospitalist; ATTEND Hospitalist
DX: R11.2 Nausea with vomiting, unspecified (principal); G89.29 Other chronic pain; R10.13 Epigastric pain; R10.12 Left upper quadrant pain; K44.9 Diaphragmatic hernia without obstruction or gangrene; N30.90 Cystitis, unspecified without hematuria; K58.9 Irritable bowel syndrome, unspecified; I10 Essential (primary) hypertension; E66.9 Obesity, unspecified; G25.81 Restless legs syndrome; E78.5 Hyperlipidemia, unspecified; M79.7 Fibromyalgia; F17.200 Nicotine dependence, unspecified, uncomplicated; F12.20 Cannabis dependence, uncomplicated; F13.20 Sedative, hypnotic or anxiolytic dependence, uncomplicated; Z79.899 Other long term (current) drug therapy; Z90.710 Acquired absence of both cervix and uterus
CPT/HCPCS: 36415; 74021; 74177; 80053; 81001; 83690; 83735; 84703; 85025; 87086; 96361; 96365; 96372; 96375; 96376; 99285; C9113; G0378; J0696; J0780; J1170; J1885; J2405; J2550; J2765; J7030; Q0163; Q9967